=== PATIENT | male | born 1945 ===

== ENCOUNTER 2022-08-25 06:12 | Emergency (ER) | payer OTHER ==
[~2022-08-25] VITALS: Ht 180.3 cm; Wt 94.8 kg
[~2022-08-25 06:12] MED LIST: CARTIA XT180 MG; COZAAR50 MG; GLIMEPIRIDE4 MG; INVOKANA300 MG; PRADAXA150 MG; SIMVASTATIN10 MG; TIMOLOL MALEATE; [UNRECOGNIZED DRUG - OTHER]
== END 2022-08-25 10:23 | disposition home or self-care (01) ==
LOC: ER 06:12
DX: R06.02 Shortness of breath (principal); E11.9 Type 2 diabetes mellitus without complications; Z79.84 Long term (current) use of oral hypoglycemic drugs; I10 Essential (primary) hypertension; Z20.822 Contact with and (suspected) exposure to COVID-19; Z91.018 Allergy to other foods